=== PATIENT | male | born 1970 | race Two or more races ===

== ENCOUNTER 2017-09-16 12:04 | Emergency (ER) | payer OTHER ==
[2017-09-16 12:14] VITALS: BMI 24.3
[2017-09-16 12:15] VITALS: BP 127/75; PULSE 73; RESP 16; TEMP 97.9; O2SAT 96
--- NOTE | 2017-09-16 12:55 | ED PDOC ---
HPI: Skin/Bite Injury Time Seen by Provider: 09/16/17 12:38 Chief Complaint (Nursing): Bite Chief Complaint (Provider): Bite History Per: Patient History/Exam Limitations: no limitations Onset/Duration Of Symptoms: Days (x 1) Current Symptoms Are (Timing): Still Present Quality Of Symptoms: Itching Additional Complaint(s): 47 year old male presents to the ER for evaluation of possible bug bites, sustained today. 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 He complains of itchiness to both regions. Patient denies recent change in detergent, soap, or lotion. It was suggested to him that he may be allergic to the soap, but he denies this. PMD: Provider ANDER Past Medical History Reviewed: Historical Data, Nursing Documentation, Vital Signs Vital Signs: Last Vital Signs Temp 97.9 F 09/16/17 12:14 Pulse 73 09/16/17 12:14 Resp 16 09/16/17 12:14 BP 127/75 09/16/17 12:14 Pulse Ox 96 09/16/17 13:03 - Family History Family History: States: Unknown Family Hx - Social History Current smoker - smoking cessation education provided: No Alcohol: None Drugs: Denies - Home Medications Home Medications: Ambulatory Orders Medication Instructions Recorded Hydrocortisone 0.5% CREAM 0.5 gm TOP BID PRN #30 gm 09/16/17 [Cortizone 0.5% CREAM] Selenium Sulfide [Selsun Blue] 325 ml TP DAILY #1 shampoo 09/16/17 - Allergies Allergies/Adverse Reactions: Allergies Allergy/AdvReac Type Severity Reaction Status Date / Time morphine Allergy ITCHING Verified 09/16/17 12:27 Penicillins Allergy ITCHING Verified 09/16/17 12:27 prochlorperazine Allergy ITCHING Verified 09/16/17 12:27 [From Compazine] Review of Systems ROS Statement: Except As Marked, All Systems Reviewed And Found Negative Constitutional: Negative for: Fever, Chills Skin: Positive for: Lesions (bug bites, w/ no bleeding or redness), Other ( Itchiness) Physical Exam - Reviewed Nursing Documentation Reviewed: Yes Vital Signs Reviewed: Yes - Physical Exam Appears: Positive for: Non-toxic, No Acute Distress Head Exam: Positive for: ATRAUMATIC, NORMOCEPHALIC. Negative for: NORMAL INSPECTION (Mild erythema with flakey dry skin. Small punctate wound in the right parietal region with mild bleeding) Skin: Positive for: Normal Color (Multiple excoriations noted to the distal right forearm, easily blanched. No burrowing noted in this region or any other) , Warm, Dry Eye Exam: Positive for: EOMI, Normal appearance, PERRL Neck: Positive for: Normal, Painless ROM Extremity: Positive for: Normal ROM. Negative for: Tenderness, Deformity, Swelling Neurologic/Psych: Positive for: Alert, Oriented (x 3) - ECG O2 Sat by Pulse Oximetry: 96 (RA) Pulse Ox Interpretation: Normal Medical Decision Making Medical Decision Making: Time: 12:40 Clinical Impression: 47 y/o male with seborrheic dermatitis and insect bite Plan: Patient is medically stable. Will d/c with rx for Selsun Blue shampoo and hydrocortisone cream. Patient requests allergy testing to see if he is allergic to soap. Instructed to follow up with [facility] outpatient for testing and further evaluation. Scribe Attestation: Documented by Rosemary Huggins, acting as a scribe for Azar Keller PA-C Provider Scribe Attestation: All medical record entries made by the Scribe were at my direction and personally dictated by me. I have reviewed the chart and agree that the record accurately reflects my personal performance of the history, physical exam, medical decision making, and the department course for this patient. I have also personally directed, reviewed, and agree with the discharge instructions and disposition. Disposition - Clinical Impression Clinical Impression: Insect bite, Seborrheic dermatitis of scalp - Patient ED Disposition Is Patient to be Admitted: No Counseled Patient/Family Regarding: Diagnosis, Need For Followup, Rx Given - Disposition Referrals: [facility] [Outside] Disposition: Routine/Home Disposition Time: 12:40 Condition: FAIR Prescriptions: Hydrocortisone 0.5% CREAM [Cortizone 0.5% CREAM] 0.5 gm TOP BID PRN #30 gm PRN Reason: Itching / Pruritus Selenium Sulfide [Selsun Blue] 325 ml TP DAILY #1 shampoo Instructions: Insect Bite or Sting (ED), Seborrheic Dermatitis (GEN) Forms: [facility] (Latvian) - POA Present On Arrival: None
== END 2017-09-16 13:10 | disposition home or self-care (01) ==
LOC: H.ER 12:04
DX: T07.XXXA Unspecified multiple injuries, initial encounter (principal); W57.XXXA Bitten or stung by nonvenomous insect and other nonvenomous arthropods, initial encounter; Y93.G1 Activity, food preparation and clean up; Y99.0 Civilian activity done for income or pay; L21.9 Seborrheic dermatitis, unspecified; Z88.0 Allergy status to penicillin